=== PATIENT | male | born 2000 | race Caucasian/White ===

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

== ENCOUNTER 2024-06-22 16:55 | Observation (INO) ==
--- NOTE | 2024-06-22 17:30 | ED.PDOC ---
General ED Provider: Dr. ROWAN MANCIA MD Chief Complaint: Nausea/Vomiting Stated Complaint: 23 yo WM woke up yesterday vomiting and continues. First 2x was clear but then bile. Vomited about 20x and now dried heaves. No diarrhea or constipation. Had some lower abdominal pain radiating to the LUQ. Had low grade fever this AM of 100.1. Coughing some yesterday. No headache or sore throat. Neg PMH. He does vape and daily THC user for over 2 years. Time Seen by Provider: 06/22/24 17:16 Mode of Arrival: Walk-In Information Source: Patient and Family Exam Limitations: No limitations Primary Care Provider: TRISHA SUMMERS PA-C Referred to ED by: Other (Self) Nursing and Triage Documentation Reviewed and Agree: Yes Does Patient Take Opioids?: No What is Opioid Naive?: *Opioid Naive implies the patient is not already taking opioids or not chronically receiving opioids on a daily basis. *PRN dosing is not "usually" associated with tolerance. *Patients are at higher risk of over-sedation and aspiration. What is Opioid Tolerant?: *Opioid Tolerance implies less than the expected response to an opioid. *Acquired tolerance is defined by the patient taking 60mg of oral morphine daily (or equianalgesic dose of another opioid) for 1 week or more. *Often associated with chronic pain. *May take more than usual dose to achieve desired pain control. Review of Systems Review Of Systems Constitutional: Reports Fever, Malaise, Weakness and Loss of appetite Eyes: Reports No symptoms Ears, Nose, Mouth, Throat: Denies Nose discharge or Throat pain Respiratory: Reports Cough; Denies Shortness of Breath Cardiac: Reports Chest pain GI: Reports Abdominal pain, Nausea, Poor appetite, Poor fluid intake and Vomiting; Denies Constipated or Diarrhea : Reports No symptoms Musculoskeletal: Reports No symptoms Skin: Reports No symptoms Neurological: Denies Anxiety, Depressed, Emotional problems or Headache [facility] Medical History Anemia D64.9 - Anemia, unspecified (ICD-10) Recurrent streptococcal tonsillitis J03.01 - Acute recurrent streptococcal tonsillitis (ICD-10) Family History Mother Drug abuse Grandfather/Grandmother flu Other Diabetes Social History Smoking and tobacco status: Current every day smoker Tobacco type: e-cigarettes Physical Exam Physical Exam Appearance: Reports Ill-appearing and Thin Ill-appearing: Mild Pain Distress: Moderate Eyes: Reports ARLEN and EOMI ENT: Reports Nose normal and Oropharynx normal; Denies Exudate Neck: Not Examined (shotty posterior lymph nodes) Respiratory: Reports Airway patent, Breath sounds clear, Breath sounds equal and Breath sounds diminished Cardiovascular: Reports RRR, Pulses normal, No rub and No murmur GI/: Reports No masses, Bowel sounds normal, No Organomegaly, Tender and Other (Diffuse guarding. ) Musculoskeletal: Reports Normal strength, ROM intact and No edema Skin: Reports Warm, Dry and Normal color Neurological: Reports Sensation intact, Motor intact, Cranial nerves intact, Alert, Oriented and Alert to verbal Psychiatric: Reports Affect appropriate and Mood appropriate Interpretation EKG Interpretation EKG Interpretation By: ED Physician Time of EKG #1: 17:32 Rate: Normal Rhythm: Sinus Ectopy: None [place]: NL and Right ST Segment: Normal Interpretation: Borderline EKG Course Course 06/22/24 17:32 06/22/24 17:32 Orders, Labs, Meds: Lab Review 06/22/24 06/22/24 17:32 18:20 WBC 11.73 H RBC 5.06 Hgb 16.2 Hct 48.9 MCV 96.6 H MCH 32.0 H MCHC 33.1 RDW Coeff of Deon 12.9 Plt Count 265 Immature Gran % (Auto) 0.1 Neut % (Auto) 79.5 H Lymph % (Auto) 9.5 L [place] % (Auto) 10.7 H Eos % (Auto) 0.1 Baso % (Auto) 0.1 Neut # (Auto) 9.3 H Lymph # (Auto) 1.1 [place] # (Auto) 1.3 Eos # (Auto) 0.0 Baso # (Auto) 0.0 Immature Gran # (Auto) 0.0 Sodium 136.1 Potassium 3.80 Chloride 99.5 Carbon Dioxide 26.9 Anion Gap 13.50 BUN 7.1 L Creatinine 0.79 Estimated GFR (MDRD) 124.00 BUN/Creatinine Ratio 8.98 Glucose 118.4 H Calcium 9.88 Total Bilirubin 1.29 AST 29.6 ALT 18.8 Alkaline Phosphatase 69.9 Total Protein 8.24 H Albumin 4.75 Globulin 3.49 Albumin/Globulin Ratio 1.36 Lipase 1088.0 H SARS CoV-2 RNA Rapid JEANA Negative Orders Category Date Time Status ADMIT OBSERVATION [PLACE PATIENT OBSERVATION] .TO ADMISSION 06/22/24 20:08 Ordered MEDSURG (NON-MONITORED BED) EKG-(ED ONLY) Stat CARDIO 06/22/24 17:23 Completed GIVE HS SNACK 2100 CARE 06/22/24 20:16 Ordered NPO REMINDER: IMAGING ONCE CARE 06/22/24 18:31 Completed FULL LIQUID DIET DIETARY 06/23/24 Breakfast Ordered HS SNACK DIETARY 06/22/24 Dinner Ordered Sal[place] [ED IV/MEDIPORT/POWERPORT] .ONCE EMERGENCY 06/22/24 17:23 Active CBC W/ AUTO DIFF Stat LAB 06/22/24 17:32 Completed CMP [COMPREHENSIVE METABOLIC PANEL] Stat LAB 06/22/24 17:32 Completed COVID [SARS COV-2 RNA RAPID JEANA] Stat LAB 06/22/24 18:20 Completed LIPASE Stat LAB 06/22/24 17:32 Completed URINALYSIS C & S IF INDICATED Stat LAB 06/22/24 17:23 Uncollected 0.9 % Sodium Chloride [Saline Flush] Meds 06/22/24 17:23 Active 1 syr IVF PRN PRN Fentanyl Citrate/Pf [Sublimaze] Meds 06/22/24 18:29 Discontinued 50 mcg IM ONCE ONE Fentanyl Citrate/Pf [Sublimaze] Meds 06/22/24 20:13 Ordered 75 mcg IVP Q3-4H PRN Iohexol [Omnipaque 350 mg/ml 100Ml] Meds 06/22/24 18:40 Discontinued 100 ml IVP ONCE ONE Ondansetron HCl/Pf [Zofran Sdv] Meds 06/22/24 17:23 Discontinued 4 mg IVP ONCE ONE Ondansetron HCl/Pf [Zofran Sdv] Meds 06/22/24 20:08 Ordered 4 mg IVP Q6HR PRN Pantoprazole Sodium [Protonix] Meds 06/22/24 17:23 Discontinued 40 mg IVP ONCE ONE Pantoprazole Sodium [Protonix] Meds 06/22/24 20:15 Once 40 mg IVP ONCE ONE Potassium Chloride/D5-0.9%NaCl [D5%-Ns-KCl 20 Meq/l IV Meds 06/22/24 17:23 Active [place]] 1,000 ml IV 250 mls/hr SODIUM CHLORIDE 0.9% @ 100 MLS/HR(1,000ml) Meds 06/22/24 20:08 Ordered Sodium Chloride 0.9% [Sodium Chloride] 1,000 ml IV 100 mls/hr CHEST, 2 VIEWS PA & LAT Stat RADS 06/22/24 17:[address] ABDOMEN/PELVIS W CONTRAST Stat RADS 06/22/24 18:31 Completed Medications Generic Name Dose Route Start Last Admin Trade Name Freq PRN Reason Stop Dose Admin Potassium Chloride/Dextrose/Sod Cl 1,000 mls @ 250 mls/hr 06/22/24 17:23 06/22/24 18:37 D5%-Ns-Kcl 20 Meq/L Iv [place] IV 06/22/24 21:22 250 mls/hr .Q4H ONE Administration Sodium Chloride 1 syr 06/22/24 17:23 0.9% Sodium Chloride 10 Ml Disp.Syrin IVF PRN PRN To flush IV Discontinued Medications Generic Name Dose Route Start Last Admin Trade Name Freq PRN Reason Stop Dose Admin Fentanyl Citrate 50 mcg 06/22/24 18:29 06/22/24 18:58 Fentanyl 50 Mcg/Ml Sdv IM 06/22/24 18:30 50 mcg ONCE ONE Administration Iohexol 100 ml 06/22/24 18:40 06/22/24 18:43 Iohexol 350 Mg/Ml 100ml IVP 06/22/24 18:41 100 ml ONCE ONE Administration Ondansetron HCl 4 mg 06/22/24 17:23 06/22/24 18:14 Ondansetron Hcl/Pf 4 Mg/2 Ml Sdv IVP 06/22/24 17:24 4 mg ONCE ONE Administration Pantoprazole Sodium 40 mg 06/22/24 17:23 06/22/24 18:14 Pantoprazole Sodium 40 Mg Vial IVP 06/22/24 17:24 40 mg ONCE ONE Administration Vital Signs: Temp Pulse Resp BP Pulse Ox 06/22/24 17:03 98.0 F 86 18 115/79 98 Discharge Plan Discharge Patient Disposition: PLACED OBSERVATION Discharge Problem: Acute pancreatitis, Cannabis use disorder Did you review [place] HAIRMASTERS MANAGER for ALL controlled substances?: Not Applicable ED Provider: ROWAN MANCIA Condition: Fair Physician Progress Note: Limited relief after the fentanyl 50 ug IV, but declined any additional meds for now. Discussed his CT scan did confirmed pancreatitis and that it's best to be admitted to OBS for IVF and pain controlled. Patiient agrees. Jamel Miranda called and message left... Jamel Miranda calls back @ 2015 hr and agreed to OBS admit.
[2024-06-22 17:44] LABS: BASOPHILS % (AUTO) 0.1 % (0.0-3.0); EOSINOPHILS % (AUTO) 0.1 % (0.0-7.0); HEMATOCRIT 48.9 % (42.0-52.0); HEMOGLOBIN 16.2 g/dl (14.0-18.0); IMMATURE GRANULOCYTE % (AUTO) 0.1 % (0.0-5.0); LYMPHOCYTES # (AUTO) 1.1 K/uL (0.60-3.4); LYMPHOCYTES % (AUTO) 9.5 (10.0-50.0); MEAN CORPUSCULAR HGB CONC 33.1 (31.8-35.4); MEAN CORPUSCULAR VOLUME 96.6 fl (80.0-94.0); MONOCYTES # (AUTO) 1.3 K/uL (0.4-2.0); MONOCYTES % (AUTO) 10.7 (0-10); NEUTROPHILS # (AUTO) 9.3 K/ul (2.0-6.9); NEUTROPHILS % (AUTO) 79.5 % (42.2-75.2); PLATELET COUNT 265 10^3/uL (140-440); RDW COEFFICIENT OF VARIATION 12.9 % (11.6-14.8); RED BLOOD COUNT 5.06 10^6/ul (4.70-6.10); WHITE BLOOD COUNT 11.73 K/ul (4.2-10.2)
[2024-06-22 17:49] LABS: ALANINE AMINOTRANSFERASE 18.8 U/L (0-50); ALBUMIN 4.75 g/dL (3.5-5.0); ALKALINE PHOSPHATASE 69.9 U/L (38-126); ASPARTATE AMINO TRANSFERASE 29.6 U/L (17-59); BILIRUBIN,TOTAL 1.29 mg/dL (0.2-1.3); BLOOD UREA NITROGEN 7.1 mg/dL (9-20); CALCIUM 9.88 mg/dL (8.4-10.2); CARBON DIOXIDE 26.9 mmol/L (22-30.0); CHLORIDE 99.5 mmol/L (98-107); CREATININE 0.79 mg/dL (0.60-1.10); GLUCOSE 118.4 mg/dL (74-106); POTASSIUM 3.8 mmol/L (3.5-5.1); SODIUM 136.1 mmol/L (134.5-145); TOTAL PROTEIN 8.24 g/dL (6.3-8.2)
[2024-06-22] MEDS: PROTONIX IVP ONE (18:14)
[2024-06-22] MEDS: ZOFRAN SDV IVP ONE (18:14)
[2024-06-22] MEDS: D5%-NS-KCL 20 MEQ/L IV SOL 1,000 ML IV ONE (18:37)
--- NOTE | 2024-06-22 18:40 | DI ---
EXAM: CHEST RADIOGRAPH TECHNIQUE: Two views. Frontal and lateral. HISTORY: Chest pain. COMPARISON: 06/19/2019 FINDINGS: Lungs show no consolidation, pleural effusion or pneumothorax. Cardiomediastinal silhouette and pulm onary vessels are within normal limits. Upper abdomen is unremarkable. No acute bony abnormality. IMPRESSION: 1. No acute cardiopulmonary disease
[2024-06-22] MEDS: OMNIPAQUE 350 MG/ML 100ML IVP ONE (18:43)
[2024-06-22] MEDS: SUBLIMAZE IM ONE (18:58)
[2024-06-22 19:07] LABS: SARS COV-2 RNA RAPID NAAT NEGATIVE (NEGATIVE)
--- NOTE | 2024-06-22 19:59 | CT ---
EXAM: CT ABDOMEN AND PELVIS WITH IV CONTRAST HISTORY: Abdominal pain, pancreatitis TECHNIQUE: Multi-slice transaxial helical CT. Coronal and sagittal reformatons were performed. COMPARISON: None FINDINGS: The heart is normal in size. The lung bases are clear. The gallbladder and the spleen appear normal in size. Fat strand densities is seen adjacent to the p ancreatic tail. The pancreas enhances diffusely. Minimal ascites is seen adjacent to the inferior l iver edge. The adrenal glands appear grossly unremarkable. No evidence of hydronephrosis is seen. The bowel is not dilated. Fat stranding/small amount of fluid is also seen adjacent to the stomach. Enlarged paragastric lymph node is seen measuring 2.1 x 0.9 cm on axial image 36. Small pelvic free fluid is seen. A urinary bladder appears grossly unremarkable. The appendix appears normal in size . No periaortic adenopathy is seen. Osseous structures appear unremarkable. :::::::::::::::::::::::::::::: IMPRESSION: 1. Acute pancreatitis. No evidence of pancreatic necrosis. 2. Minimal ascites. Small pelvic free fluid. 3. Mild perigastric adenopathy, most likely reactive. :::::::::::::::::::::::::::::: All CT scans are performed using dose optimization techniques as appropriate to the performed exam an d include at least one of the following: Automated exposure control, adjustment of the mA and/or kV according t o size, and the use of iterative reconstruction technique.
[2024-06-22] MEDS ORDERED: ZOFRAN SDV IVP PRN ×2 (20:08→20:16)
[2024-06-22] MEDS ORDERED: SODIUM CHLORIDE 1,000 ML IV ONE (20:08)
[2024-06-22] MEDS ORDERED: SUBLIMAZE IVP PRN (20:13)
[2024-06-22] MEDS ORDERED: PROTONIX IVP ONE (20:15)
[2024-06-22] MEDS ORDERED: TYLENOL PO PRN (20:16)
[2024-06-22] MEDS ORDERED: MORPHINE 2 MG/ML SYRINGE IVP PRN (20:16)
[2024-06-22] MEDS ORDERED: REGLAN IVP PRN (20:16)
[2024-06-22 20:23] LABS: BILIRUBIN,URINE Negative (NEGATIVE); CLARITY,URINE Clear (CLEAR); COLOR,URINE Yellow (YELLOW); GLUCOSE, URINE (UA) Negative (NEGATIVE); KETONES,URINE 1+ (NEGATIVE); LEUKOCYTE ESTERASE ,URINE Negative (NEGATIVE); NITRITE,URINE Negative (NEGATIVE); PROTEIN,URINE 1+ (NEGATIVE); URINE, BLOOD Negative (NEGATIVE); UROBILINOGEN,URINE 0.2 (0.2)
[2024-06-22] MEDS ORDERED: D5%-NS-KCL 20 MEQ/L IV SOL 1,000 ML IV SCH (20:30)
[2024-06-22 20:37] LABS: URINE RBC, MICROSCOPIC 0-2 (0-2); URINE WBC, MICROSCOPIC 0-2 (0-2)
[2024-06-22 20:38] LABS: BACTERIA,URINE TRACE (NOT PRESENT); MUCUS,URINE 1+ (NOT PRESENT); SQUAMOUS EPITHELIAL CELL,UR 0-2 (0-5)
[2024-06-22 21:17] LABS: AMPHETAMINE SCREEN,URINE NEGATIVE (NEGATIVE); BARBITURATE SCREEN,URINE NEGATIVE (NEGATIVE); METHADONE URINE SCREEN NEGATIVE (NEGATIVE); METHAMPHETAMINES SCREEN,URINE NEGATIVE (NEGATIVE); OPIATE SCREEN,URINE NEGATIVE (NEGATIVE); OXYCODONE URINE SCREEN NEGATIVE (NEGATIVE); PHENCYCLIDINE SCREEN,URINE NEGATIVE (NEGATIVE)
[2024-06-22 21:18] LABS: BENZODIAZEPINES SCREEN,URINE NEGATIVE (NEGATIVE); CANNABINOID SCREEN,URINE POSITIVE (NEGATIVE); COCAIN SCREEN,URINE NEGATIVE (NEGATIVE); TRICYCLIC ANTIDEPRESSANTS URIN NEGATIVE (NEGATIVE)
[2024-06-22 22:06] VITALS: BMI 17.1
[2024-06-22] MEDS: D5%-NS-KCL 20 MEQ/L IV SOL 1,000 ML IV SCH (22:38)
[2024-06-23 05:11] VITALS: BP 112/68; PULSE 69; RESP 19; TEMP 97.7
[2024-06-23 06:05] LABS: BASOPHILS % (AUTO) 0.1 % (0.0-3.0); EOSINOPHILS % (AUTO) 0.1 % (0.0-7.0); HEMOGLOBIN 14.1 g/dl (14.0-18.0); IMMATURE GRANULOCYTE % (AUTO) 0.2 % (0.0-5.0); LYMPHOCYTES # (AUTO) 1.2 K/uL (0.60-3.4); LYMPHOCYTES % (AUTO) 10.1 (10.0-50.0); MEAN CORPUSCULAR HEMOGLOBIN 31.6 pg (27.0-31.0); MEAN CORPUSCULAR HGB CONC 32.9 (31.8-35.4); MEAN CORPUSCULAR VOLUME 96.2 fl (80.0-94.0); MONOCYTES # (AUTO) 1.5 K/uL (0.4-2.0); MONOCYTES % (AUTO) 11.9 (0-10); NEUTROPHILS # (AUTO) 9.6 K/ul (2.0-6.9); NEUTROPHILS % (AUTO) 77.6 % (42.2-75.2); PLATELET COUNT 231 10^3/uL (140-440); RED BLOOD COUNT 4.46 10^6/ul (4.70-6.10); WHITE BLOOD COUNT 12.31 K/ul (4.2-10.2)
[2024-06-23 06:07] LABS: ALANINE AMINOTRANSFERASE 14.4 U/L (0-50); ALBUMIN 3.89 g/dL (3.5-5.0); ALKALINE PHOSPHATASE 58.6 U/L (38-126); ASPARTATE AMINO TRANSFERASE 23.5 U/L (17-59); BILIRUBIN,TOTAL 0.8 mg/dL (0.2-1.3); BLOOD UREA NITROGEN 4.4 mg/dL (9-20); CALCIUM 9.22 mg/dL (8.4-10.2); CARBON DIOXIDE 23.7 mmol/L (22-30.0); CHLORIDE 104.8 mmol/L (98-107); CREATININE 0.66 mg/dL (0.60-1.10); GLUCOSE 123.8 mg/dL (74-106); POTASSIUM 4.11 mmol/L (3.5-5.1); SODIUM 136.1 mmol/L (134.5-145); TOTAL PROTEIN 6.82 g/dL (6.3-8.2)
[2024-06-23 06:09] LABS: HEMATOCRIT 42.9 % (42.0-52.0)
[2024-06-23] MEDS: TORADOL IVP PRN (08:59)
--- NOTE | 2024-06-23 10:42 | PCM.SS ---
Provider Provider: KATHY DAWN, [facility] Admission Date Admission Date: 06/22/24 Discharge Date Discharge Date: 06/23/24 Primary Care Physician Primary Care Physician: TRISHA SUMMERS PA-C Chief Complaint Reason For Visit: PANCREATITIS History of Present Illness History of Present Illness: Admitted 06/22/24 20:28, this 23 year old /WHITE/M presented to the ER with complaints of abdominal pain. States that the pain started on Monday and persisted. Began vomiting yesterday. Denies taking anything for pain or nausea. Reports frequent alcohol use and smokes marijuana. Denies any bloody vomitus or stool, fever, chills, body aches, or other symptoms. Patient was found to have acute pancreatitis. Admitted to med/surg observation. [facility] Medical History Anemia D64.9 - Anemia, unspecified (ICD-10) Recurrent streptococcal tonsillitis J03.01 - Acute recurrent streptococcal tonsillitis (ICD-10) Family History Mother Drug abuse Grandfather/Grandmother flu PATERNAL GRANDMOTHER Diabetes Social History Smoking and tobacco status: Current every day smoker Tobacco type: e-cigarettes Alcohol intake: current Alcohol intake frequency: a few times a week Alcohol ty pe: beer and hard liquor Substance use type: marijuana Counseling given: No Special gabby needs: No Agree to transfusion: Yes Adopted: No Caregiver/support person: Yes Foster care: No Household members: family Housing: house Marital status: S SINGLE Daycare: no daycare Highest education level completed: high school graduate Current occupational status: employed 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 Current occupational exposures/hazards: No Pets and animals: Yes History of recent travel: No Do you think of yourself as: straight/heterosexual Current gender identity: male Seatbelt use: always Helmet use: No Drives intoxicated or rides with intoxicated putaway driver: No Current diet type/program: regular Caffeine: Yes Water heater temperature set < 120 degrees: Yes Working smoke detector in home: Yes Fire extinguisher in home: Yes Carbon monoxide detector in home: No Firearms in home: Yes Firearms unloaded and locked: Yes What type of physical activity do you participate in?: walking Medications Mecications: Medications at Discharge (Home Meds & RX) 1 [No Reported Medications] 06/22/24 Allergies Allergies Allergy/AdvReac Type Severity Reaction Status Date / Time aloe AdvReac Mild Rash Verified 06/22/24 17:09 Review of Systems Constitutional: Reports No symptoms Head: Reports Normocephalic Eyes: Reports No symptoms Ears: Reports No symptoms Nose: Reports No symptoms Mouth: Reports No symptoms Throat: Reports No symptoms Cardiovascular: Reports No symptoms Respiratory: Reports No symptoms Gastrointestinal: Reports Nausea, Vomiting and Abdominal pain Genitourinary: Reports No Symptoms Musculoskeletal: Reports No symptoms Endocrine: Reports No symptoms Hematology: Reports No symptoms Immunology: Reports No symptoms Neurological: Reports No symptoms Psychiatric: Reports No symptoms Physical Examination Appearance: Positive No Apparent Distress, Alert and Oriented x3 and Thin Head: Positive Normocephalic Eyes: Positive ARLEN ENT: Positive Not Examined Neck: Positive Supple, Non-Tender and Trachea Midline Heart: Positive RRR and No Murmurs Respiratory: Positive Breath Sounds Clear, Bilaterally, Breath Sounds Equal and Respirations Nonlabored GI/: Positive Soft, Nontender, Bowel sounds normal and No Distention Neurological: Positive Sensation Intact, Motor Intact, Alert and Oriented Psychiatric: Positive Normal Judgement, Normal Insight, Affect Appropriate and Mood Appropriate Vital Signs (Last 4 Hours) Vital Signs Last 4 Hours: Vital Signs: Last 4 Hours 06/23/24 07:00 06/23/24 07:44 06/23/24 09:00 Oxygen Delivery Method Room Air Room Air Room Air 06/23/24 09:36 Oxygen Delivery Method Room Air Labs This Visit Labs This Visit: Labs This Visit 06/22/24 06/22/24 06/22/24 17:32 18:20 20:15 WBC 11.73 H RBC 5.06 Hgb 16.2 Hct 48.9 MCV 96.6 H MCH 32.0 H MCHC 33.1 RDW Coeff of Deon 12.9 Plt Count 265 Immature Gran % (Auto) 0.1 Neut % (Auto) 79.5 H Lymph % (Auto) 9.5 L [place] % (Auto) 10.7 H Eos % (Auto) 0.1 Baso % (Auto) 0.1 Neut # (Auto) 9.3 H Lymph # (Auto) 1.1 [place] # (Auto) 1.3 Eos # (Auto) 0.0 Baso # (Auto) 0.0 Immature Gran # (Auto) 0.0 Sodium 136.1 Potassium 3.80 Chloride 99.5 Carbon Dioxide 26.9 Anion Gap 13.50 BUN 7.1 L Creatinine 0.79 Estimated GFR (MDRD) 124.00 BUN/Creatinine Ratio 8.98 Glucose 118.4 H Calcium 9.88 Total Bilirubin 1.29 AST 29.6 ALT 18.8 Alkaline Phosphatase 69.9 Total Protein 8.24 H Albumin 4.75 Globulin 3.49 Albumin/Globulin Ratio 1.36 Lipase 1088.0 H Urine Color Yellow Urine Clarity Clear Urine pH 7.0 Ur Specific [place] 1.015 Urine Protein 1+ H Urine Glucose (UA) Negative Urine Ketones 1+ H Urine Blood Negative Urine Nitrite Negative Urine Bilirubin Negative Urine Urobilinogen 0.2 Ur Leukocyte Esterase Negative Urine Microscopic RBC 0-2 Urine Microscopic WBC 0-2 Ur Squamous Epith Cells 0-2 Urine Bacteria Trace Urine Mucus 1+ Urine Opiates Screen Negative Ur Oxycodone Screen Negative Urine Methadone Screen Negative Ur Barbiturates Screen Negative U Tricyclic Antidepress Negative Ur Phencyclidine Scrn Negative Ur Amphetamine Screen Negative U Methamphetamines Scrn Negative U Benzodiazepines Scrn Negative Urine Cocaine Screen Negative U Cannabinoids Screen Positive H Plasma/Serum Alcohol < 10.0 SARS CoV-2 RNA Rapid JEANA Negative 06/23/24 05:28 WBC 12.31 H RBC 4.46 L Hgb 14.1 Hct 42.9 D MCV 96.2 H MCH 31.6 H MCHC 32.9 RDW Coeff of Deon 13.0 Plt Count 231 Immature Gran % (Auto) 0.2 Neut % (Auto) 77.6 H Lymph % (Auto) 10.1 [place] % (Auto) 11.9 H Eos % (Auto) 0.1 Baso % (Auto) 0.1 Neut # (Auto) 9.6 H Lymph # (Auto) 1.2 [place] # (Auto) 1.5 Eos # (Auto) 0.0 Baso # (Auto) 0.0 Immature Gran # (Auto) 0.0 Sodium 136.1 Potassium 4.11 Chloride 104.8 Carbon Dioxide 23.7 Anion Gap 11.71 BUN 4.4 L Creatinine 0.66 Estimated GFR (MDRD) 152.00 BUN/Creatinine Ratio 6.66 Glucose 123.8 H Calcium 9.22 Total Bilirubin 0.80 AST 23.5 ALT 14.4 Alkaline Phosphatase 58.6 Total Protein 6.82 Albumin 3.89 Globulin 2.93 Albumin/Globulin Ratio 1.32 Lipase 483.0 H Urine Color Urine Clarity Urine pH Ur Specific [place] Urine Protein Urine Glucose (UA) Urine Ketones Urine Blood Urine Nitrite Urine Bilirubin Urine Urobilinogen Ur Leukocyte Esterase Urine Microscopic RBC Urine Microscopic WBC Ur Squamous Epith Cells Urine Bacteria Urine Mucus Urine Opiates Screen Ur Oxycodone Screen Urine Methadone Screen Ur Barbiturates Screen U Tricyclic Antidepress Ur Phencyclidine Scrn Ur Amphetamine Screen U Methamphetamines Scrn U Benzodiazepines Scrn Urine Cocaine Screen U Cannabinoids Screen Plasma/Serum Alcohol SARS CoV-2 RNA Rapid JEANA Imaging Imaging: EXAM: CT ABDOMEN AND PELVIS WITH IV CONTRAST HISTORY: Abdominal pain, pancreatitis TECHNIQUE: Multi-slice transaxial helical CT. Coronal and sagittal reformatons were performed. COMPARISON: None FINDINGS: The heart is normal in size. The lung bases are clear. The gallbladder and the spleen appear normal in size. Fat strand densities is seen adjacent to the pancreatic tail. The pancreas enhances diffusely. Minimal ascites is seen adjacent to the inferior liver edge. The adrenal glands appear grossly unremarkable. No evidence of hydronephrosis is seen. The bowel is not dilated. Fat stranding/small amount of fluid is also seen adjacent to the stomach. Enlarged paragastric lymph node is seen measuring 2.1 x 0.9 cm on axial image 36. Small pelvic free fluid is seen. A urinary bladder appears grossly unremarkable. The appendix appears normal in size. No periaortic adenopathy is seen. Osseous structures appear unremarkable. :::::::::::::::::::::::::::::: IMPRESSION: 1. Acute pancreatitis. No evidence of pancreatic necrosis. 2. Minimal ascites. Small pelvic free fluid. 3. Mild perigastric adenopathy, most likely reactive Review Review Statement: I have independently reviewed and interpreted the labs/EKGs/imaging that were ordered by the ER provider. I have reviewed all outside records that are available currently in our EMR including imaging/notes/labs from previous visits. Plan Reccomendations/Plan: 1. Acute Pancreatitis - received D5 NS + KCL overnight, NPO until this am, did not require any pain medications until this am, toradol given and pain improved. Tolerated clear liquids well with no vomiting, lipase trending down D/c home with dietary instructions. Discouraged alcohol use and high fat diet. Follow-up with PCP this week. Additional Planning: Case discussed with ED Physician, Dr. Courtney. DVT Prophylaxis: Ambulation Smoking Cessation: 3-10 minutes spent discussing smoking cessation. Disposition: Admit to: Med/Surg Observation Full Code Discussed Plan of Care with Dr. Romina Ortiz. If patient discharged with Left Ventricular Systolic Dysfunction: No Discharged with a beta javid? [] If no, why not? [] Discharged with an lori/arb? [] If no, why not? [] Diagnosis: Pancreatitis Diet: Clear liquid to Full liquids today, advance diet as tolerated, Low fat daily, avoid alcohol Activity: as tolerated Medications: none Follow-up with PCP this week. Review With Patient Reviewed with Patient and Family: Patient and family have been counseled on condition and care plan and have no immediate questions. I have personally discussed and reviewed the patient's visit/current labs/imaging/decision making with Dr. Zakia Ortiz, my supervising attending. Total number of minutes spent with patient 85 min. More than 50% of the time spent with this patient was devoted to counseling and coordination of care. Time of Admission:06/22/24 20:28 Time of Discharge: 06/22/24 10:45 Discharge Plan Discharge Discharge Orders: Discharge Patient (ONCE); Ordered 06/23/24 Ordered By: GLORIA GOMES Activity Restrictions/Additional Instructions: Diagnosis: Pancreatitis Diet: Clear liquid to Full liquids today, advance diet as tolerated, Low fat daily, avoid alcohol Activity: as tolerated Medications: none Follow-up with PCP this week. Instructions: Pancreatitis (GEN) Patient Disposition: HOME WITH FAMILY CARE Prescriptions: No Action No Reported Medications Did you review [place] MUSE[employer] ATTENDANT for ALL controlled substances?: No Discussed opioids are addictive and Narcan is available by prescription or from pharmacy.: No Condition: Fair
== END 2024-06-23 11:11 | disposition home or self-care (01) ==
LOC: ED 16:55 → MEDSURG B 16:55
PROVIDERS: ADMIT Hospitalist; ATTEND Nurse Practitioner Family
DX: F17.290 Nicotine dependence, other tobacco product, uncomplicated; F12.90 Cannabis use, unspecified, uncomplicated; K85.90 Acute pancreatitis without necrosis or infection, unspecified; Z20.822 Contact with and (suspected) exposure to COVID-19; R11.2 Nausea with vomiting, unspecified